=== PATIENT | female | born 2000 | race Caucasian/White ===

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

== ENCOUNTER 2022-03-29 01:57 | Emergency (ER) | payer OTHER ==
[2022-03-29 02:35] LABS: BILIRUBIN Negative (Negative); BLOOD Negative (Negative); CLARITY Cloudy (Clear); COLOR Yellow (Yellow); GLUCOSE Negative (Negative); KETONE Trace (Negative); LEUKO ESTERASE Negative (Negative); NITRITE Negative (Negative); SPECIFIC GRAVITY 1.025 (1.001-1.030)
[2022-03-29 02:35] LABS: BASO # 0.1 10*3/uL (0.0-0.1); BASO % 0.9 % (0.0-1.0); EOS # 0.1 10*3/uL (0.0-0.4); EOS % 1.8 % (1.0-4.0); HEMATOCRIT 37.9 % (37.0-47.0); LYMPH # 1.1 10*3/uL (1.3-4.4); LYMPH % 15.8 % (27.0-41.0); MEAN CELL VOLUME 82.4 fl (81.0-99.0); MEAN CORPUSCULAR HGB 26.7 pg (27.0-31.0); MEAN CORPUSCULAR HGB CONC 32.5 g/dl (33.0-37.0); MEAN PLATELET VOLUME 10.6 fl (9.6-12.3); MONO # 0.9 10*3/uL (0.1-1.0); MONO % 13.2 % (3.0-9.0); NEUT # 4.6 10*3/uL (2.3-7.9); PLATELET COUNT AUTOMATED 240 10*3/uL (130-400); RED CELL DISTRI WIDTH 12.8 % (0-14.5); WHITE BLOOD COUNT 6.7 10*3/uL (4.8-10.8)
[2022-03-29 03:11] LABS: ALKALINE PHOSPHATASE 113 U/L (45-117); BUN 6 mg/dl (7-24); CHLORIDE 104 mmol/L (98-107); CREATININE 0.74 mg/dL (0.55-1.02); LIPASE 72 U/L (73-393); POTASSIUM 3.4 mmol/L (3.5-5.1); SGOT/AST 29 IU/L (3-35); SGPT/ALT 51 U/L (12-78); SODIUM 137 mmol/L (136-145); TOTAL PROTEIN 7.6 gm/dL (6.4-8.2)
== END 2022-03-29 03:51 | disposition home or self-care (01) ==
LOC: ED 01:57
PROVIDERS: Emergency Medicine
DX: U07.1 COVID-19 (principal)

== ENCOUNTER 2022-05-05 14:46 | Emergency (ER) | payer OTHER ==
[~2022-05-05] VITALS: Ht 165.1 cm; Wt 72.6 kg
== END 2022-05-05 17:20 | disposition home or self-care (01) ==
LOC: ED 14:46
DX: S93.401A Sprain of unspecified ligament of right ankle, initial encounter (principal); M25.532 Pain in left wrist; M25.531 Pain in right wrist; X58.XXXA Exposure to other specified factors, initial encounter; Y93.89 Activity, other specified; Y92.89 Other specified places as the place of occurrence of the external cause; Y99.8 Other external cause status

== ENCOUNTER 2022-05-30 21:10 | Emergency (ER) | payer OTHER ==
[2022-05-30 21:39] LABS: BILIRUBIN Negative (Negative); BLOOD Negative (Negative); CLARITY Clear (Clear); COLOR Yellow (Yellow); GLUCOSE Negative (Negative); KETONE Negative (Negative); LEUKO ESTERASE Negative (Negative); NITRITE Negative (Negative); SPECIFIC GRAVITY <= 1.005 (1.001-1.030); UROBILINOGEN 0.2 E.U./dl (0.0-1.0)
[2022-05-30 21:49] LABS: EPITHELIAL CELLS 0-2; WBC 0-2 wbc/hpf (0-5)
[2022-05-30 22:17] LABS: BASO # 0.1 10*3/uL (0.0-0.1); BASO % 0.8 % (0.0-1.0); EOS # 0.1 10*3/uL (0.0-0.4); EOS % 1.1 % (1.0-4.0); LYMPH # 1.6 10*3/uL (1.3-4.4); LYMPH % 17.3 % (27.0-41.0); MEAN CELL VOLUME 84.7 fl (81.0-99.0); MEAN CORPUSCULAR HGB 26.6 pg (27.0-31.0); MEAN CORPUSCULAR HGB CONC 31.4 g/dl (33.0-37.0); MEAN PLATELET VOLUME 10.8 fl (9.6-12.3); MONO # 0.4 10*3/uL (0.1-1.0); MONO % 4.5 % (3.0-9.0); NEUT # 7.2 10*3/uL (2.3-7.9); NEUT % 76.1 % (47.0-73.0); PLATELET COUNT AUTOMATED 299 10*3/uL (130-400); RED BLOOD COUNT 4.96 10*6/uL (4.10-5.10); RED CELL DISTRI WIDTH 13.1 % (0-14.5); WHITE BLOOD COUNT 9.5 10*3/uL (4.8-10.8)
[2022-05-30 22:35] LABS: ALKALINE PHOSPHATASE 97 U/L (45-117); BUN 6 mg/dl (7-24); CHLORIDE 110 mmol/L (98-107); CREATININE 0.78 mg/dL (0.55-1.02); LIPASE 135 U/L (73-393); POTASSIUM 3.5 mmol/L (3.5-5.1); SGOT/AST 17 IU/L (3-35); SGPT/ALT 34 U/L (12-78); SODIUM 143 mmol/L (136-145)
== END 2022-05-30 23:00 | disposition home or self-care (01) ==
LOC: ED 21:10
PROVIDERS: Internal Medicine
DX: R10.9 Unspecified abdominal pain (principal)

== ENCOUNTER 2022-06-15 07:10 | Emergency (ER) | payer OTHER ==
[~2022-06-15] VITALS: Ht 160 cm; Wt 72.6 kg
== END 2022-06-15 09:30 | disposition home or self-care (01) ==
LOC: ED 07:10
DX: S80.212A Abrasion, left knee, initial encounter (principal); S80.211A Abrasion, right knee, initial encounter; W18.39XA Other fall on same level, initial encounter; Y93.89 Activity, other specified; Y92.89 Other specified places as the place of occurrence of the external cause; Y99.8 Other external cause status

== ENCOUNTER 2022-07-26 13:01 | Emergency (ER) | payer OTHER ==
[~2022-07-26] VITALS: Wt 72.6 kg
[2022-07-26 13:54] LABS: BILIRUBIN Negative (Negative); BLOOD Trace-Lysed (Negative); CLARITY Cloudy (Clear); COLOR Dark Yellow (Yellow); GLUCOSE Negative (Negative); KETONE Trace (Negative); LEUKO ESTERASE 1+ (Negative); NITRITE Negative (Negative); PH 5.5 (4.5-8.0); SPECIFIC GRAVITY >= 1.030 (1.001-1.030)
[2022-07-26 14:02] LABS: BACTERIA 2+; CALCIUM OXALATE CRYSTALS 2+; MUCOUS 1+; RBC 0-2 rbc/hpf (0-2); WBC 16-20 wbc/hpf (0-5)
[2022-07-26 14:15] LABS: BASO # 0.1 10*3/uL (0.0-0.1); BASO % 0.8 % (0.0-1.0); EOS # 0.3 10*3/uL (0.0-0.4); LYMPH % 25.3 % (27.0-41.0); MEAN CELL VOLUME 83.5 fl (81.0-99.0); MEAN CORPUSCULAR HGB 26.8 pg (27.0-31.0); MEAN CORPUSCULAR HGB CONC 32.1 g/dl (33.0-37.0); MEAN PLATELET VOLUME 11.4 fl (9.6-12.3); MONO # 0.5 10*3/uL (0.1-1.0); MONO % 6.1 % (3.0-9.0); NEUT # 5.1 10*3/uL (2.3-7.9); NEUT % 63.4 % (47.0-73.0); PLATELET COUNT AUTOMATED 298 10*3/uL (130-400); RED BLOOD COUNT 5.15 10*6/uL (4.10-5.10); RED CELL DISTRI WIDTH 13.5 % (0-14.5)
[2022-07-26 14:30] LABS: ALKALINE PHOSPHATASE 114 U/L (46-116); BUN 8 mg/dl (9-23); CHLORIDE 107 mmol/L (98-107); CREATININE 0.72 mg/dL (0.55-1.02); POTASSIUM 3.5 mmol/L (3.4-5.1); SGPT/ALT 40 U/L (10-49); SODIUM 142 mmol/L (136-145); TOTAL PROTEIN 7.7 gm/dL (6.0-8.0)
[2022-07-26] MEDS ORDERED: MACROBID100 M1 PO (14:40)
== END 2022-07-26 14:43 | disposition home or self-care (01) ==
LOC: ED 13:01
PROVIDERS: Nurse Practitioner Family
DX: N39.0 Urinary tract infection, site not specified (principal); R11.0 Nausea

== ENCOUNTER 2022-07-28 07:33 | Emergency (ER) | payer OTHER ==
[~2022-07-28] VITALS: Ht 160 cm; Wt 72.6 kg
[~2022-07-28 07:33] MED LIST: MACROBID100 M1 PO
[2022-07-28 08:23] LABS: BASO # 0.1 10*3/uL (0.0-0.1); BASO % 0.9 % (0.0-1.0); EOS # 0.2 10*3/uL (0.0-0.4); EOS % 1.9 % (1.0-4.0); HEMATOCRIT 41.7 % (37.0-47.0); LYMPH # 2.1 10*3/uL (1.3-4.4); LYMPH % 20.7 % (27.0-41.0); MEAN CELL VOLUME 82.9 fl (81.0-99.0); MEAN CORPUSCULAR HGB 27.6 pg (27.0-31.0); MEAN CORPUSCULAR HGB CONC 33.3 g/dl (33.0-37.0); MEAN PLATELET VOLUME 11.2 fl (9.6-12.3); MONO # 0.5 10*3/uL (0.1-1.0); MONO % 4.9 % (3.0-9.0); NEUT # 7.2 10*3/uL (2.3-7.9); NEUT % 71.3 % (47.0-73.0); PLATELET COUNT AUTOMATED 283 10*3/uL (130-400); RED BLOOD COUNT 5.03 10*6/uL (4.10-5.10); RED CELL DISTRI WIDTH 13.3 % (0-14.5); WHITE BLOOD COUNT 10.2 10*3/uL (4.8-10.8)
[2022-07-28 08:38] LABS: BUN 5 mg/dl (9-23); CHLORIDE 104 mmol/L (98-107); CREATININE 0.75 mg/dL (0.55-1.02); POTASSIUM 3.3 mmol/L (3.4-5.1); SODIUM 138 mmol/L (136-145)
[2022-07-28 08:58] LABS: B-hCG (QUALITATIVE) NEGATIVE (NEGATIVE)
[2022-07-28] MEDS ORDERED: Ondansetron4 MG PO (10:07)
== END 2022-07-28 10:17 | disposition home or self-care (01) ==
LOC: ED 07:33
PROVIDERS: Family Medicine
DX: T37.8X1A Poisoning by other specified systemic anti-infectives and antiparasitics, accidental (unintentional), initial encounter (principal); Y92.89 Other specified places as the place of occurrence of the external cause

== ENCOUNTER 2022-10-14 18:12 | Emergency (ER) | payer OTHER ==
[~2022-10-14] VITALS: Ht 160 cm; Wt 81.6 kg
[~2022-10-14 18:12] MED LIST changes: +Ondansetron4 MG PO
[2022-10-14 19:15] LABS: BILIRUBIN 1+ (Negative); BLOOD Negative (Negative); CLARITY Cloudy (Clear); COLOR Dark Yellow (Yellow); GLUCOSE Negative (Negative); KETONE Negative (Negative); LEUKO ESTERASE 1+ (Negative); NITRITE Negative (Negative); PH 5.5 (4.5-8.0); SPECIFIC GRAVITY >= 1.030 (1.001-1.030)
[2022-10-14 19:34] LABS: MUCOUS 2+; WBC 21-30 wbc/hpf (0-5)
[2022-10-14 19:35] LABS: BACTERIA 3+
[2022-10-14 19:40] LABS: BASO # 0.1 10*3/uL (0.0-0.1); BASO % 0.9 % (0.0-1.0); EOS # 0.6 10*3/uL (0.0-0.4); EOS % 5.5 % (1.0-4.0); HEMATOCRIT 44.1 % (37.0-47.0); LYMPH # 2.4 10*3/uL (1.3-4.4); LYMPH % 23.4 % (27.0-41.0); MEAN CELL VOLUME 83.7 fl (81.0-99.0); MEAN CORPUSCULAR HGB 26.9 pg (27.0-31.0); MEAN CORPUSCULAR HGB CONC 32.2 g/dl (33.0-37.0); MEAN PLATELET VOLUME 10.8 fl (9.6-12.3); MONO # 0.7 10*3/uL (0.1-1.0); NEUT # 6.3 10*3/uL (2.3-7.9); PLATELET COUNT AUTOMATED 354 10*3/uL (130-400); RED BLOOD COUNT 5.27 10*6/uL (4.10-5.10)
[2022-10-14 19:51] LABS: ACT PARTIAL THROMBO TIME 30.9 SECONDS (20.0-32.1); INTERNATIONAL NORM RATIO 1.1 (2.0-3.5)
[2022-10-14 19:57] LABS: ALKALINE PHOSPHATASE 104 U/L (46-116); BUN 12 mg/dl (9-23); CHLORIDE 103 mmol/L (98-107); LIPASE 37 U/L (12-53); POTASSIUM 3.6 mmol/L (3.4-5.1); SGPT/ALT 33 U/L (10-49); TOTAL PROTEIN 8.6 gm/dL (6.0-8.0)
[2022-10-14] MEDS ORDERED: METRONIDAZOLE500 M1 PO (20:16)
[2022-10-14] MEDS ORDERED: VIBRAMYCIN100 MG PO (20:16)
== END 2022-10-14 20:58 | disposition home or self-care (01) ==
LOC: ED 18:12
PROVIDERS: Physician Assistant
DX: N39.0 Urinary tract infection, site not specified (principal)